=== PATIENT | male | born 1990 | race Two or more races ===

== ENCOUNTER 2021-09-05 15:59 | Outpatient (CLI) | payer OTHER ==
[~2021-09-05 15:59] MED LIST: CAPOTEN12.5 MG PO
== END 2021-09-05 16:12 | disposition home or self-care (01) ==
LOC: RAD 15:59
DX: M25.551 Pain in right hip (principal); M25.552 Pain in left hip; M54.50 Low back pain, unspecified

== ENCOUNTER 2021-09-06 12:15 | Outpatient (CLI) | payer OTHER | END 2021-09-06 12:21 | disposition home or self-care (01) | LOC: SONOGRAMA 12:15 | DX: M25.551 Pain in right hip (principal); M25.552 Pain in left hip ==

== ENCOUNTER → 2022-09-30 | Emergency (ER) | payer OTHER ==
[~2022-09-30] VITALS: Ht 180.3 cm; Wt 108.9 kg
[~2022-09-30] MED LIST changes: +AVAPRO150 MG PO; +CRESTOR40 MG PO; +NIFEDIPINE20 MG PO
== END | disposition left against medical advice (07) ==
LOC: ER 12:18
DX: Z53.21 Procedure and treatment not carried out due to patient leaving prior to being seen by health care provider (principal)